=== PATIENT | male | born 1965 | race Caucasian/White ===

== ENCOUNTER 2016-04-29 10:31 | Inpatient (IN) | payer BC ==
[~2016-04-29] VITALS: Ht 172.7 cm; Wt 124.0 kg
[~2016-04-29 10:31] MED LIST: ADULT LOW DOSE81 M1 PO; AMOX TR-K CLV1 EAC4 PO; ANUSOL HC,ANUCO25 MG PR; ASMANEX TW200 MICRO1 IH; ASPIR-LOW81 MG PO; ASPIRIN EC325 MG PO; ASPIRIN81 M2 PO; ATIVAN1 MG PO; ATROVENT 00.5 MG/2.5 IH; AUGMENTIN875 MG PO; AZITHROMYCIN250 MG1 PO; AZITHROMYCIN500 M1 PO; Advair HFA 115/21 IH; CARDIZEM CD,CA180 MG PO; CARDIZEM CD,CA240 MG PO; CARDIZEM CD120 MG PO; CARDIZEM120 MG PO; CARDIZEM60 MG PO; CHEMO DRUGS PO; CHILD ASPIRIN81 M1 PO; CIMETIDINE400 MG PO; CIPRO500 MG PO; COMBIVENT RESPIM4 GM IH; COMPAZINE10 MG PO; DAILY VALUE1 EACH PO; DAILY VITAMIN1 EAC8 PO; DAILY VITE1 EAC1 PO; DELTASONE20 M1 PO; DESYREL100 MG PO; DIGOXIN250 MCG PO; DOXYCYCLINE HY100 MG PO; ENDOCET 5-3251 EACH PO; ENOXAPARIN120 MG/0.8; FENTANYL1 EAC5; FLEXERIL5 MG PO; FLONASE16 G1 BOTH NARES; FLOVENT 22120 INHALA IH; FLOVENT DISKUS1 DIS2 IH; FLUTICASONE PRO16 GM BOTH NARES; FOLIC ACID1 MG; FUROSEMIDE20 MG PO; K-DUR20 MEQ PO; LASIX20 MG PO; LASIX40 MG PO; LEVALBUTER1.25 MG/0. AEROSOL; LEVALBUTER1.25 MG/0. IH; LEVAQUIN500 MG PO; LEVAQUIN750 MG PO; LEVOFLOXACIN500 MG PO; LEVOFLOXACIN750 MG; LORAZEPAM1 MG PO; Lipitor PO; MEN'S MULTI-VI1 EACH PO; METOPROLOL SUCC25 MG PO; METOPROLOL SUCC50 MG PO; METRONIDAZOLE500 MG PO; MOXIFLOXACIN H400 MG PO; OXAYDO5 MG PO; OXECTA5 MG PO; OXYCODONE HCL5 M1; OXYCODONE HCL5 MG PO; PANTOPRAZOLE SO40 MG; PANTOPRAZOLE SO40 MG PO; PEPCID20 MG PO; PERCOCET 5/31 TABLET PO; POTASSIUM PO; PREDNISONE10 M1 PO; PREDNISONE10 MG PO; PREDNISONE20 MG PO; PREDNISONE5 MG PO; PREDNISONE50 MG PO; PROAIR HFA8.5 GM IH; PROMETHAZINE HC25 M1 PO; PROVENTIL,2.5 MG/3 M IH; QVAR 40 MCG IN7.3 GM IH; QVAR 80 MCG IN7.3 GM IH; ROXICODONE5 MG PO; SINGULAIR10 MG PO; SPIRIVA RESPIMAT4 GM IH; SPIRIVA1 INHALATI IH; ST. JOSEPH ASPI81 MG PO; TO WHOM IT MAY CONCE; TRAZODONE HCL100 MG PO; TRAZODONE HCL50 MG PO; TYLENOL EXTRA500 MG PO; TYLENOL PM1 CAPLET PO; TYLENOL REGULA325 MG PO; VENTOLIN HFA18 GM IH; VICODIN ES 7.51 EAC1 PO; VITAMIN D2000 INTUN PO; XARELTO15 MG PO; XARELTO20 MG PO; ZEASORB POWDE70.9 GM TP; ZEASORB-AF70 G1 TP; ZITHROMAX Z-PA250 MG PO; ZOFRAN ODT8 MG PO; ZOFRAN8 MG PO; multivitamin PO
[2016-04-29 12:14] LABS: CHLORIDE 96 mEq/L (99-109); POTASSIUM 3.5 mEq/L (3.7-5.4); SODIUM 136 mEq/L (136-147)
[2016-04-29 12:15] LABS: HEMATOCRIT 33.2 % (38.0-50.0); MCH 29.5 PG (29.0-34.0); MCHC 31.3 G/DL (30.0-36.0); MCV 94.3 FL (86-99); MEAN PLAT.VOLUME 11.8 uM^3 (9.0-12.4); PLATELET COUNT 96 K/uL (156-360); RBC DIS.WIDTH-CV 15.2 % (11.8-14.6); RBC DIS.WIDTH-SD 49.3 % (39-53); RED BLOOD COUNT 3.52 M/uL (4.00-5.50); WHITE BLOOD COUNT 1.1 K/uL (4.1-10.2)
[2016-04-29 12:16] LABS: GLUCOSE 194 mg/dL (70-99)
[2016-04-29 12:20] LABS: GFR ESTIMATE (CALCULATED) > 59 mL/min/
[2016-04-29 12:21] LABS: INTER. NORMALIZED RATIO 1.3; PROTHROMBIN TIME 13.5 (9.2-11.2); PTT 58.3 (25-32); UREA NITROGEN (BUN) 7 mg/dL (9-23)
[2016-04-29 12:24] LABS: ANION GAP 10 MEQ/L (2-14)
[2016-04-29 12:25] LABS: TOTAL BILIRUBIN 0.7 mg/dL (0.0-1.0)
[2016-04-29 12:26] LABS: ALKALINE PHOSPHATASE 86 IU/L (3-129)
[2016-04-29 12:28] LABS: DIRECT BILIRUBIN 0.4 mg/dL (0.0-0.3)
[2016-04-29 13:29] LABS: ADD MIUA? NO; BILIRUBIN NEGATIVE; BLOOD NEGATIVE; COLOR YELLOW ((YELLOW)); GLUCOSE (STRIP) NEGATIVE; KETONES NEGATIVE; LEUKOCYTES NEGATIVE; NITRITE NEGATIVE; PH, URINE 6.5 (5-8); PROTEIN (STRIP) NEGATIVE; SPECIFIC GRAVITY 1.015 (1.000-1.030); UCUL ADDED? NO; UROBILINOGEN 0.2 MG/DL (0.2-1.0)
[2016-04-29 17:50] LABS: LYMPHOCYTE COUNT 0.3 K/uL (1.0-2.8); MONOCYTE (%) 13.5 % (3-12); MONOCYTE COUNT 0.1 K/uL (0-0.8); NEUTROPHIL (%) 58.6 % (45-76); NEUTROPHIL COUNT 0.6 K/uL (1.8-6.4)
[2016-04-29] MEDS ORDERED: DIGOXIN250 MCG PO (18:49)
[2016-04-29] MEDS ORDERED: DESYREL100 MG PO (18:52)
[2016-04-29] MEDS ORDERED: LASIX20 MG PO (18:52)
[2016-04-29 21:58] VITALS: BP 151/85
[2016-04-30] VITALS: BP 106/55
[2016-04-30 00:34] LABS: HEMATOCRIT 31.4 % (38.0-50.0); MCV 94.3 FL (86-99)
[2016-04-30 07:27] VITALS: BP 96/55
[2016-04-30 08:23] LABS: HEMATOCRIT 31.1 % (38.0-50.0); MCV 94.2 FL (86-99)
[2016-04-30 14:55] VITALS: BP 110/61
[2016-04-30 16:07] LABS: HEMATOCRIT 31.6 % (38.0-50.0)
[2016-05-01 00:14] VITALS: BP 127/68
[2016-05-01 07:49] VITALS: BP 96/55
[2016-05-01 09:07] LABS: ANION GAP 8 MEQ/L (2-14); CHLORIDE 99 MEQ/L (99-109); GFR ESTIMATE (CALCULATED) > 59 mL/min/; GLUCOSE 147 mg/dL (70-99); POTASSIUM 3.4 MEQ/L (3.7-5.4); SAMPLE HEMOLYSIS CHECK 0; SAMPLE ICTERIC CHECK 0; SAMPLE LIPEMIA CHECK 0; SODIUM 139 MEQ/L (136-147); UREA NITROGEN (BUN) 6 mg/dL (9-23)
[2016-05-01 09:46] LABS: EOSINOPHIL (%) 0.6 % (0-5); HEMATOCRIT 29.2 % (38.0-50.0); LYMPHOCYTE COUNT 0.4 K/uL (1.0-2.8); MCH 29.9 PG (29.0-34.0); MCHC 31.8 G/DL (30.0-36.0); MCV 93.9 FL (86-99); MONOCYTE (%) 23.3 % (3-12); MONOCYTE COUNT 0.4 K/uL (0-0.8); NEUTROPHIL (%) 50.3 % (45-76); NEUTROPHIL COUNT 0.8 K/uL (1.8-6.4); PLATELET COUNT 116 K/uL (156-360); RBC DIS.WIDTH-CV 15.3 % (11.8-14.6); RBC DIS.WIDTH-SD 52.5 % (39-53); RED BLOOD COUNT 3.11 M/uL (4.00-5.50)
[2016-05-01 09:56] VITALS: BP 121/67
[2016-05-01 10:02] LABS: WHITE BLOOD COUNT 1.6 K/uL (4.1-10.2)
[2016-05-01 11:10] LABS: HEMATOLOGY COMMENT 1 SMEAR COMPATIBLE; PLAT.SUFFICIENCY DECREASED; USER ID TLW
[2016-05-01 15:27] VITALS: BP 130/73
[2016-05-01 23:40] VITALS: BP 132/67
[2016-05-02 07:21] VITALS: BP 144/71
[2016-05-02 07:52] LABS: NRBC (%) 1.2 /100 WBC (0-0)
[2016-05-02 07:59] LABS: EOSINOPHIL (%) 0.2 % (0-5); HEMATOCRIT 31.5 % (38.0-50.0); IMMATURE GRANULOCYTE (%) 0.6 % (0.0-0.7); LYMPHOCYTE COUNT 0.7 K/uL (1.0-2.8); MCH 29.9 PG (29.0-34.0); MCHC 31.7 G/DL (30.0-36.0); MEAN PLAT.VOLUME 11.1 uM^3 (9.0-12.4); MONOCYTE (%) 16.4 % (3-12); MONOCYTE COUNT 0.9 K/uL (0-0.8); NEUTROPHIL (%) 68.9 % (45-76); NEUTROPHIL COUNT 3.7 K/uL (1.8-6.4); PLATELET COUNT 115 K/uL (156-360); RBC DIS.WIDTH-CV 15.6 % (11.8-14.6); RBC DIS.WIDTH-SD 52.6 % (39-53); RED BLOOD COUNT 3.35 M/uL (4.00-5.50)
[2016-05-02 08:02] LABS: WHITE BLOOD COUNT 5.3 K/uL (4.1-10.2)
[2016-05-02] MEDS ORDERED: ANUCORT-HC25 MG PR (15:25)
[2016-05-02 16:00] VITALS: BP 100/68
== END 2016-05-02 19:34 | disposition home or self-care (01) | DRG 394 ==
LOC: EME 10:31 → EDOF 21:06 → 5SOUTH 21:06
PROVIDERS: Hospitalist; Internal Medicine; Nurse Practitioner Family
DX: K64.8 Other hemorrhoids (principal); K62.5 Hemorrhage of anus and rectum; C78.01 Secondary malignant neoplasm of right lung; D70.1 Agranulocytosis secondary to cancer chemotherapy; D64.81 Anemia due to antineoplastic chemotherapy; D69.59 Other secondary thrombocytopenia; D62 Acute posthemorrhagic anemia; E87.6 Hypokalemia; I48.0 Paroxysmal atrial fibrillation; E66.9 Obesity, unspecified; Z68.41 Body mass index [BMI] 40.0-44.9, adult; Z86.718 Personal history of other venous thrombosis and embolism; Z79.01 Long term (current) use of anticoagulants; Z85.118 Personal history of other malignant neoplasm of bronchus and lung
CPT/HCPCS: 74177; 80048; 80076; 81003; 83605; 85014; 85018; 85025; 85027; 85610; 85730; 86850; 86900; 86901; 87040; 93005; 94640; 94640 76; 94799; 99202; 99281; 99285; J0692; J1447; J7030; J7050

== ENCOUNTER 2016-12-31 17:20 | Inpatient (IN) | payer BC ==
[~2016-12-31] VITALS: Ht 172.7 cm; Wt 124.5 kg
[~2016-12-31 17:20] MED LIST changes: +ANUCORT-HC25 MG PR
[2016-12-31 19:42] LABS: EOSINOPHIL (%) 1.7 % (0-5); EOSINOPHIL COUNT 0.1 K/uL (0-0.3); HEMATOCRIT 27.7 % (38.0-50.0); IMMATURE GRANULOCYTE (%) 0.3 % (0.0-0.7); INSTRUMENT ABS NEUTROPHIL CT 2.1 K/uL; LYMPHOCYTE COUNT 0.4 K/uL (1.0-2.8); MCH 30.2 PG (29.0-34.0); MCV 97.2 FL (86-99); MEAN PLAT.VOLUME 11.4 uM^3 (9.0-12.4); MONOCYTE (%) 11.8 % (3-12); MONOCYTE COUNT 0.3 K/uL (0-0.8); NEUTROPHIL (%) 73.3 % (45-76); NEUTROPHIL COUNT 2.1 K/uL (1.8-6.4); PLATELET COUNT 95 K/uL (156-360); RBC DIS.WIDTH-CV 17.8 % (11.8-14.6); RBC DIS.WIDTH-SD 63.6 % (39-53); RED BLOOD COUNT 2.85 M/uL (4.00-5.50); WHITE BLOOD COUNT 2.9 K/uL (4.1-10.2)
[2016-12-31 19:51] LABS: CHLORIDE 94 mEq/L (99-109); POTASSIUM 3.8 mEq/L (3.7-5.4); SODIUM 135 mEq/L (136-147)
[2016-12-31 19:53] LABS: GLUCOSE 118 mg/dL (70-99)
[2016-12-31 19:55] LABS: ANION GAP 10 MEQ/L (2-14); TOTAL BILIRUBIN 0.8 mg/dL (0.0-1.0)
[2016-12-31 19:57] LABS: ALKALINE PHOSPHATASE 147 IU/L (3-129); GFR ESTIMATE (CALCULATED) > 59 mL/min/
[2016-12-31 19:58] LABS: UREA NITROGEN (BUN) 6 mg/dL (9-23)
[2016-12-31 20:03] LABS: TROP-I INTERPRETATION NEGATIVE; TROPONIN-I 0.01 ng/mL (0.0-0.30)
[2016-12-31] MEDS ORDERED: QVAR 80 MCG IN7.3 GM IH (21:51)
[2016-12-31] MEDS ORDERED: MONTELUKAST SOD10 MG PO (21:51)
[2016-12-31] MEDS ORDERED: FLONASE16 G1 BOTH NARES (21:52)
[2016-12-31] MEDS ORDERED: LOPRESSOR25 MG PO (21:52)
[2016-12-31] MEDS ORDERED: FUROSEMIDE20 MG PO (21:52)
[2016-12-31] MEDS ORDERED: MICRO-K10 ME2 PO (21:52)
[2016-12-31] MEDS ORDERED: FUROSEMIDE40 MG PO (21:52)
[2017-01-01 01:45] LABS: INTER. NORMALIZED RATIO 1.2; PROTHROMBIN TIME 12.8 SEC (10.2-12.9)
[2017-01-01 03:05] VITALS: BP 128/59
[2017-01-01 05:54] LABS: HEMATOCRIT 27.1 % (38.0-50.0); MCH 29.6 PG (29.0-34.0); MCHC 30.3 G/DL (30.0-36.0); MCV 97.8 FL (86-99); MEAN PLAT.VOLUME 12.6 uM^3 (9.0-12.4); PLATELET COUNT 99 K/uL (156-360); RBC DIS.WIDTH-SD 64.9 % (39-53); RED BLOOD COUNT 2.77 M/uL (4.00-5.50); WHITE BLOOD COUNT 3.1 K/uL (4.1-10.2)
[2017-01-01 06:15] LABS: ANION GAP 9 MEQ/L (2-14); CHLORIDE 95 MEQ/L (99-109); GFR ESTIMATE (CALCULATED) > 59 mL/min/; GLUCOSE 115 mg/dL (70-99); MAGNESIUM 1.4 mg/dl (1.3-2.7); POTASSIUM 3.6 MEQ/L (3.7-5.4); SAMPLE HEMOLYSIS CHECK 0; SAMPLE ICTERIC CHECK 0; SAMPLE LIPEMIA CHECK 0; SODIUM 136 MEQ/L (136-147); UREA NITROGEN (BUN) 6 mg/dL (9-23)
[2017-01-01 06:42] LABS: ANISOCYTOSIS 2+; EOSINOPHIL (%) 1.6 % (0-5); EOSINOPHIL COUNT 0.1 K/uL (0-0.3); HYPOCHROMASIA 1+; IMMATURE GRANULOCYTE (%) 0.3 % (0.0-0.7); INSTRUMENT ABS NEUTROPHIL CT 2.2 K/uL; LYMPHOCYTE COUNT 0.4 K/uL (1.0-2.8); MACROCYTES 2+; MICROCYTOSIS 1+; MONOCYTE COUNT 0.4 K/uL (0-0.8); NEUTROPHIL (%) 71.8 % (45-76); NEUTROPHIL COUNT 2.2 K/uL (1.8-6.4)
[2017-01-01 07:34] VITALS: BP 114/58
[2017-01-01 12:00] VITALS: BP 117/57
[2017-01-01 16:15] VITALS: BP 107/59
[2017-01-01 20:10] VITALS: BP 115/54
[2017-01-02] VITALS (7 sets, daily range): BP systolic 92–119; BP diastolic 52–72
[2017-01-02 05:15] LABS: HEMATOCRIT 26.3 % (38.0-50.0); MCHC 31.6 G/DL (30.0-36.0); MCV 98.1 FL (86-99); MEAN PLAT.VOLUME 11.8 uM^3 (9.0-12.4); PLATELET COUNT 114 K/uL (156-360); RBC DIS.WIDTH-CV 18.5 % (11.8-14.6); RBC DIS.WIDTH-SD 66.4 % (39-53); RED BLOOD COUNT 2.68 M/uL (4.00-5.50); WHITE BLOOD COUNT 3.2 K/uL (4.1-10.2)
[2017-01-02 05:56] LABS: ANION GAP 7 MEQ/L (2-14); CHLORIDE 94 MEQ/L (99-109); GFR ESTIMATE (CALCULATED) > 59 mL/min/; GLUCOSE 106 mg/dL (70-99); POTASSIUM 3.3 MEQ/L (3.7-5.4); SAMPLE HEMOLYSIS CHECK 0; SAMPLE ICTERIC CHECK 0; SAMPLE LIPEMIA CHECK 0; SODIUM 137 MEQ/L (136-147); UREA NITROGEN (BUN) 6 mg/dL (9-23)
[2017-01-02 05:57] LABS: MAGNESIUM 1.7 mg/dl (1.3-2.7)
[2017-01-03 03:37] VITALS: BP 105/57
[2017-01-03 05:55] LABS: HEMATOCRIT 25.9 % (38.0-50.0); MCH 31.2 PG (29.0-34.0); MCHC 31.7 G/DL (30.0-36.0); MCV 98.5 FL (86-99); PLATELET COUNT 113 K/uL (156-360); RBC DIS.WIDTH-CV 18.5 % (11.8-14.6); RBC DIS.WIDTH-SD 66.6 % (39-53); RED BLOOD COUNT 2.63 M/uL (4.00-5.50); WHITE BLOOD COUNT 2.8 K/uL (4.1-10.2)
[2017-01-03 06:14] LABS: ANION GAP 9 MEQ/L (2-14); CHLORIDE 95 MEQ/L (99-109); GFR ESTIMATE (CALCULATED) > 59 mL/min/; GLUCOSE 88 mg/dL (70-99); MAGNESIUM 1.6 mg/dl (1.3-2.7); POTASSIUM 3.4 MEQ/L (3.7-5.4); SAMPLE HEMOLYSIS CHECK 0; SAMPLE ICTERIC CHECK 0; SAMPLE LIPEMIA CHECK 0; SODIUM 139 MEQ/L (136-147); UREA NITROGEN (BUN) 8 mg/dL (9-23)
[2017-01-03 07:21] VITALS: BP 113/77
[2017-01-03 11:04] VITALS: BP 135/55
[2017-01-03 15:33] VITALS: BP 99/62
[2017-01-03 19:13] VITALS: BP 131/63
[2017-01-03 23:44] VITALS: BP 112/58
[2017-01-04 03:39] VITALS: BP 119/62
[2017-01-04 05:48] LABS: HEMATOCRIT 25.8 % (38.0-50.0); MCHC 31.4 G/DL (30.0-36.0); MCV 98.9 FL (86-99); MEAN PLAT.VOLUME 11.5 uM^3 (9.0-12.4); PLATELET COUNT 112 K/uL (156-360); RBC DIS.WIDTH-CV 18.4 % (11.8-14.6); RBC DIS.WIDTH-SD 66.3 % (39-53); RED BLOOD COUNT 2.61 M/uL (4.00-5.50); WHITE BLOOD COUNT 2.4 K/uL (4.1-10.2)
[2017-01-04 06:07] LABS: ANION GAP 8 MEQ/L (2-14); CHLORIDE 94 MEQ/L (99-109); GFR ESTIMATE (CALCULATED) > 59 mL/min/; GLUCOSE 97 mg/dL (70-99); POTASSIUM 3.5 MEQ/L (3.7-5.4); SAMPLE HEMOLYSIS CHECK 0; SAMPLE ICTERIC CHECK 0; SAMPLE LIPEMIA CHECK 0; SODIUM 138 MEQ/L (136-147); UREA NITROGEN (BUN) 7 mg/dL (9-23)
[2017-01-04 07:58] VITALS: BP 104/58
[2017-01-04 11:21] VITALS: BP 91/54
[2017-01-04 15:37] VITALS: BP 109/66
[2017-01-04 23:50] VITALS: BP 103/54
[2017-01-05 06:41] LABS: HEMATOCRIT 26.3 % (38.0-50.0); MCH 29.7 PG (29.0-34.0); MCV 98.9 FL (86-99); MEAN PLAT.VOLUME 10.2 uM^3 (9.0-12.4); PLATELET COUNT 102 K/uL (156-360); RBC DIS.WIDTH-CV 18.5 % (11.8-14.6); RBC DIS.WIDTH-SD 66.5 % (39-53); RED BLOOD COUNT 2.66 M/uL (4.00-5.50); WHITE BLOOD COUNT 2.3 K/uL (4.1-10.2)
[2017-01-05 07:19] LABS: ANION GAP 7 MEQ/L (2-14); CHLORIDE 94 MEQ/L (99-109); GFR ESTIMATE (CALCULATED) > 59 mL/min/; GLUCOSE 99 mg/dL (70-99); MAGNESIUM 1.5 mg/dl (1.3-2.7); POTASSIUM 3.5 MEQ/L (3.7-5.4); SAMPLE HEMOLYSIS CHECK 0; SAMPLE ICTERIC CHECK 0; SAMPLE LIPEMIA CHECK 0; SODIUM 139 MEQ/L (136-147); UREA NITROGEN (BUN) 7 mg/dL (9-23)
[2017-01-05 08:15] VITALS: BP 115/62
[2017-01-05 15:43] VITALS: BP 113/66
[2017-01-05 23:31] VITALS: BP 111/64
[2017-01-06 06:27] LABS: HEMATOCRIT 26.8 % (38.0-50.0); MCH 29.4 PG (29.0-34.0); MCHC 29.9 G/DL (30.0-36.0); MCV 98.5 FL (86-99); MEAN PLAT.VOLUME 10.3 uM^3 (9.0-12.4); PLATELET COUNT 104 K/uL (156-360); RBC DIS.WIDTH-CV 18.6 % (11.8-14.6); RBC DIS.WIDTH-SD 67.7 % (39-53); RED BLOOD COUNT 2.72 M/uL (4.00-5.50); WHITE BLOOD COUNT 2.7 K/uL (4.1-10.2)
[2017-01-06 07:40] VITALS: BP 114/59
[2017-01-06 07:45] LABS: ANION GAP 8 MEQ/L (2-14); CHLORIDE 94 MEQ/L (99-109); GFR ESTIMATE (CALCULATED) > 59 mL/min/; GLUCOSE 107 mg/dL (70-99); MAGNESIUM 1.7 mg/dl (1.3-2.7); POTASSIUM 3.7 MEQ/L (3.7-5.4); SODIUM 139 MEQ/L (136-147); UREA NITROGEN (BUN) 6 mg/dL (9-23)
[2017-01-06 11:16] VITALS: BP 111/56
[2017-01-06 14:41] VITALS: BP 112/67
[2017-01-06 15:35] LABS: POINT-OF-CARE METER ID UU13113725
[2017-01-06 15:48] VITALS: BP 108/68
[2017-01-06 22:32] VITALS: BP 102/56
[2017-01-07 06:59] LABS: ANION GAP 10 MEQ/L (2-14); CHLORIDE 93 MEQ/L (99-109); GFR ESTIMATE (CALCULATED) > 59 mL/min/; GLUCOSE 114 mg/dL (70-99); POTASSIUM 3.9 MEQ/L (3.7-5.4); SAMPLE HEMOLYSIS CHECK 0; SAMPLE ICTERIC CHECK 0; SAMPLE LIPEMIA CHECK 0; SODIUM 137 MEQ/L (136-147); UREA NITROGEN (BUN) 8 mg/dL (9-23)
[2017-01-07 07:27] VITALS: BP 123/56
[2017-01-07 16:29] VITALS: BP 120/65
[2017-01-07 21:44] VITALS: BP 101/56
[2017-01-08 00:17] VITALS: BP 115/64
[2017-01-08 05:26] VITALS: BP 107/60
[2017-01-08 06:21] LABS: ANION GAP 9 MEQ/L (2-14); CHLORIDE 94 MEQ/L (99-109); GFR ESTIMATE (CALCULATED) > 59 mL/min/; GLUCOSE 122 mg/dL (70-99); MAGNESIUM 1.6 mg/dl (1.3-2.7); POTASSIUM 3.7 MEQ/L (3.7-5.4); SAMPLE HEMOLYSIS CHECK 0; SAMPLE ICTERIC CHECK 0; SAMPLE LIPEMIA CHECK 0; SODIUM 137 MEQ/L (136-147); UREA NITROGEN (BUN) 14 mg/dL (9-23)
[2017-01-08 07:35] VITALS: BP 115/69
[2017-01-08 15:14] VITALS: BP 102/59
== END 2017-01-08 18:41 | disposition short-term general hospital (02) | DRG 189 ==
LOC: EME 17:20 → 4EAST 22:43 → EDOF 22:43 → 5EAST 22:43 → ENRESERV 22:46 → EDOF 01-01 00:23 → ENRESERV 01-01 00:24 → 4EAST 01-01 02:31 → ENRESERV 01-04 10:25 → 5EAST 01-04 18:21
PROVIDERS: Emergency Medicine; Hospitalist; Physician Assistant Medical; Student in an Organized Health Care Education/Training Program
PROC: 0BD38ZX Extraction of Right Main Bronchus, Via Natural or Artificial Opening Endoscopic, Diagnostic (ICD-10-PCS; principal; 2017-01-06)
DX: J96.01 Acute respiratory failure with hypoxia (principal); I11.0 Hypertensive heart disease with heart failure; I50.33 Acute on chronic diastolic (congestive) heart failure; C34.11 Malignant neoplasm of upper lobe, right bronchus or lung; E66.01 Morbid (severe) obesity due to excess calories; Z86.711 Personal history of pulmonary embolism; Z86.718 Personal history of other venous thrombosis and embolism; I48.0 Paroxysmal atrial fibrillation; Z79.01 Long term (current) use of anticoagulants; I95.9 Hypotension, unspecified; Z99.81 Dependence on supplemental oxygen; K21.9 Gastro-esophageal reflux disease without esophagitis; Z87.891 Personal history of nicotine dependence; Z68.41 Body mass index [BMI] 40.0-44.9, adult; Z91.11 Patient's noncompliance with dietary regimen; D61.810 Antineoplastic chemotherapy induced pancytopenia; T45.1X5A Adverse effect of antineoplastic and immunosuppressive drugs, initial encounter; I27.29 Other secondary pulmonary hypertension; I48.92 Unspecified atrial flutter; I87.2 Venous insufficiency (chronic) (peripheral); J98.11 Atelectasis; E87.6 Hypokalemia; J44.1 Chronic obstructive pulmonary disease with (acute) exacerbation; I26.99 Other pulmonary embolism without acute cor pulmonale; J18.9 Pneumonia, unspecified organism; J44.0 Chronic obstructive pulmonary disease with (acute) lower respiratory infection
CPT/HCPCS: 71010; 71250; 76604; 76775; 80048; 80053; 80069; 82948; 83605; 83615 91; 83735; 83880; 84157; 84484; 85025; 85027; 85610; 85651; 87040; 87070; 87205; 88108; 89051; 93005; 93306; 94640; 94640 76; 94667; 94668; 94799; 99202; 99281; 99285; J0692; J0696; J1644; J1940; J2250; J3475; J7050; J7512

== ENCOUNTER 2017-11-06 21:42 | Inpatient (IN) | payer OTHER ==
[~2017-11-06] VITALS: Ht 172.7 cm; Wt 102.0 kg
[~2017-11-06 21:42] MED LIST changes: +FUROSEMIDE40 MG PO; +MICRO-K10 ME2 PO; +MONTELUKAST SOD10 MG PO; +TOPROL XL25 MG PO
[2017-11-06 22:22] LABS: BASOPHIL (%) 0 % (0-1); EOSINOPHIL (%) 2.7 % (0-5); EOSINOPHIL COUNT 0.1 K/uL (0-0.3); HEMATOCRIT 26.8 % (38.0-50.0); HEMOGLOBIN 8.5 G/DL (12.5-16.6); IMMATURE GRANULOCYTE (%) 0.3 % (0.0-0.7); LYMPHOCYTE (%) 14.8 % (15-42); LYMPHOCYTE COUNT 0.5 K/uL (1.0-2.8); MCHC 31.7 G/DL (30.0-36.0); MCV 97.8 FL (86-99); MONOCYTE (%) 10.3 % (3-12); MONOCYTE COUNT 0.3 K/uL (0-0.8); NEUTROPHIL (%) 71.9 % (45-76); NEUTROPHIL COUNT 2.4 K/uL (1.8-6.4); PLATELET COUNT 80 K/uL (156-360); RBC DIS.WIDTH-CV 15.6 % (11.8-14.6); RBC DIS.WIDTH-SD 55.6 % (39-53); RED BLOOD COUNT 2.74 M/uL (4.00-5.50); WHITE BLOOD COUNT 3.3 K/uL (4.1-10.2)
[2017-11-06 22:27] LABS: INTER. NORMALIZED RATIO 1.3
[2017-11-06 22:30] LABS: PTT 34.8 SEC (25-37)
[2017-11-06 22:44] LABS: TROP-I INTERPRETATION NEGATIVE; TROPONIN-I < 0.01 ng/mL (0.0-0.30)
[2017-11-06 22:56] LABS: ALBUMIN 3.1 G/DL (3.2-4.8); ALKALINE PHOSPHATASE 134 IU/L (3-129); ALT (GPT) 6 IU/L (3-49); AST (GOT) 19 IU/L (2-34); CHLORIDE 100 MEQ/L (99-109); CREATININE 1.1 MG/DL (0.6-1.3); DIRECT BILIRUBIN 0.3 mg/dL (0.0-0.3); GFR ESTIMATE (CALCULATED) > 59 mL/min/ (58.99-99999); GLUCOSE 118 mg/dL (70-99); POTASSIUM 4.3 MEQ/L (3.7-5.4); SODIUM 139 MEQ/L (136-147); TOTAL BILIRUBIN 0.9 MG/DL (0.0-1.0); TOTAL PROTEIN 6.4 G/DL (6.4-8.3); UREA NITROGEN (BUN) 15 mg/dL (9-23)
[2017-11-07] MEDS ORDERED: DILTIAZEM 24HR120 MG PO (00:21)
[2017-11-07] MEDS ORDERED: ALBUTEROL2.5 MG/3 M IH (00:21)
[2017-11-07] MEDS ORDERED: LISINOPRIL2.5 MG PO (00:22)
[2017-11-07] MEDS ORDERED: LEVAQUIN500 MG PO (00:22)
[2017-11-07 04:44] VITALS: BP 90/66
[2017-11-07 07:50] VITALS: BP 93/52
[2017-11-07 08:47] LABS: HEMATOCRIT 25.6 % (38.0-50.0); HEMOGLOBIN 7.8 G/DL (12.5-16.6); MCV 99.6 FL (86-99)
[2017-11-07 11:41] VITALS: BP 155/70
[2017-11-07 15:54] LABS: HEMATOCRIT 25.7 % (38.0-50.0); HEMOGLOBIN 8.1 G/DL (12.5-16.6); MCV 99.6 FL (86-99)
[2017-11-07 17:00] VITALS: BP 95/54
[2017-11-07 19:45] VITALS: BP 90/50
[2017-11-07 23:25] VITALS: BP 95/51
[2017-11-08 00:26] LABS: HEMATOCRIT 25.2 % (38.0-50.0); HEMOGLOBIN 8.2 G/DL (12.5-16.6); MCV 97.3 FL (86-99)
[2017-11-08 03:40] VITALS: BP 95/50
[2017-11-08 06:22] LABS: CHLORIDE 100 MEQ/L (99-109); GFR ESTIMATE (CALCULATED) > 59 mL/min/ (58.99-99999); POTASSIUM 4.2 MEQ/L (3.7-5.4); SODIUM 140 MEQ/L (136-147); UREA NITROGEN (BUN) 13 mg/dL (9-23)
[2017-11-08 06:26] LABS: GLUCOSE 81 mg/dL (70-99)
[2017-11-08 07:51] VITALS: BP 91/50
[2017-11-08 09:47] LABS: APPEARANCE CLEAR ((CLEAR)); BILIRUBIN NEGATIVE; BLOOD NEGATIVE; COLOR YELLOW ((YELLOW)); GLUCOSE (STRIP) NEGATIVE; KETONES NEGATIVE; LEUKOCYTES NEGATIVE; NITRITE NEGATIVE; PROTEIN (STRIP) NEGATIVE; SPECIFIC GRAVITY 1.008 (1.000-1.030); UCUL ADDED? NO; UROBILINOGEN 0.2 MG/DL (0.2-1.0)
[2017-11-08 11:35] VITALS: BP 93/56
[2017-11-08 16:46] VITALS: BP 90/55
[2017-11-08 19:45] VITALS: BP 90/54
[2017-11-09] VITALS (8 sets, daily range): BP systolic 96–116; BP diastolic 50–65
[2017-11-09 05:41] LABS: BASOPHIL (%) 0.4 % (0-1); EOSINOPHIL (%) 3.1 % (0-5); EOSINOPHIL COUNT 0.1 K/uL (0-0.3); HEMATOCRIT 26.1 % (38.0-50.0); HEMOGLOBIN 8.1 G/DL (12.5-16.6); LYMPHOCYTE (%) 19.7 % (15-42); LYMPHOCYTE COUNT 0.5 K/uL (1.0-2.8); MCH 30.5 PG (29.0-34.0); MCV 98.1 FL (86-99); MONOCYTE (%) 20.1 % (3-12); MONOCYTE COUNT 0.5 K/uL (0-0.8); NEUTROPHIL (%) 56.7 % (45-76); NEUTROPHIL COUNT 1.4 K/uL (1.8-6.4); PLATELET COUNT 83 K/uL (156-360); RBC DIS.WIDTH-CV 15.3 % (11.8-14.6); RBC DIS.WIDTH-SD 55.6 % (39-53); RED BLOOD COUNT 2.66 M/uL (4.00-5.50); WHITE BLOOD COUNT 2.5 K/uL (4.1-10.2)
[2017-11-09 05:57] LABS: CHLORIDE 97 MEQ/L (99-109); CREATININE 1.1 MG/DL (0.6-1.3); GFR ESTIMATE (CALCULATED) > 59 mL/min/ (58.99-99999); GLUCOSE 92 mg/dL (70-99); POTASSIUM 4.2 MEQ/L (3.7-5.4); SODIUM 139 MEQ/L (136-147); UREA NITROGEN (BUN) 15 mg/dL (9-23)
[2017-11-10 03:41] VITALS: BP 102/59
[2017-11-10 06:06] LABS: HEMATOCRIT 24.8 % (38.0-50.0); HEMOGLOBIN 7.7 G/DL (12.5-16.6); MCH 30.3 PG (29.0-34.0); MCV 97.6 FL (86-99); PLATELET COUNT 71 K/uL (156-360); RBC DIS.WIDTH-CV 15.1 % (11.8-14.6); RBC DIS.WIDTH-SD 54.4 % (39-53); RED BLOOD COUNT 2.54 M/uL (4.00-5.50)
[2017-11-10 06:14] LABS: CHLORIDE 95 MEQ/L (99-109); CREATININE 1.1 MG/DL (0.6-1.3); GFR ESTIMATE (CALCULATED) > 59 mL/min/ (58.99-99999); GLUCOSE 89 mg/dL (70-99); POTASSIUM 4.1 MEQ/L (3.7-5.4); SODIUM 138 MEQ/L (136-147); UREA NITROGEN (BUN) 14 mg/dL (9-23)
[2017-11-10 06:50] LABS: WHITE BLOOD COUNT 1.7 K/uL (4.1-10.2)
[2017-11-10 07:15] LABS: ANISOCYTOSIS 1+; BAND NEUTROPHILS 0.9 % (0-8.0); EOSINOPHIL ABS CT 0.1; EOSINOPHILS 3.5 % (0-5.0); GIANT PLATELETS 1+; HYPOCHROMASIA 3+; LYMPHOCYTES 20.9 % (15.0-45.0); MACROCYTES 1+; MONOCYTES 15.6 % (0-9.0); PLAT.SUFFICIENCY DECREASED; POIKILOCYTOSIS 1+; SEG.NEUTROPHILS 59.1 % (46.0-76.0)
[2017-11-10 09:08] VITALS: BP 110/58
[2017-11-10 12:30] VITALS: BP 100/57
[2017-11-10 17:00] VITALS: BP 107/61
[2017-11-10 19:14] VITALS: BP 110/61
[2017-11-10 19:41] LABS: HEMATOCRIT 25.9 % (38.0-50.0); HEMOGLOBIN 8.2 G/DL (12.5-16.6)
[2017-11-10 23:30] VITALS: BP 96/52
[2017-11-11] VITALS (7 sets, daily range): BP systolic 93–101; BP diastolic 51–60
[2017-11-11 05:39] LABS: BASOPHIL (%) 0.5 % (0-1); EOSINOPHIL (%) 1.6 % (0-5); HEMATOCRIT 24.7 % (38.0-50.0); HEMOGLOBIN 7.8 G/DL (12.5-16.6); LYMPHOCYTE (%) 20.8 % (15-42); LYMPHOCYTE COUNT 0.4 K/uL (1.0-2.8); MCH 30.6 PG (29.0-34.0); MCHC 31.6 G/DL (30.0-36.0); MCV 96.9 FL (86-99); MONOCYTE (%) 25.1 % (3-12); MONOCYTE COUNT 0.5 K/uL (0-0.8); PLATELET COUNT 75 K/uL (156-360); RBC DIS.WIDTH-CV 15.3 % (11.8-14.6); RBC DIS.WIDTH-SD 53.9 % (39-53); RED BLOOD COUNT 2.55 M/uL (4.00-5.50)
[2017-11-11 05:44] LABS: WHITE BLOOD COUNT 1.8 K/uL (4.1-10.2)
[2017-11-11 06:01] LABS: CHLORIDE 95 MEQ/L (99-109); CREATININE 0.9 MG/DL (0.6-1.3); GFR ESTIMATE (CALCULATED) > 59 mL/min/ (58.99-99999); GLUCOSE 87 mg/dL (70-99); POTASSIUM 3.8 MEQ/L (3.7-5.4); SODIUM 136 MEQ/L (136-147); UREA NITROGEN (BUN) 12 mg/dL (9-23)
[2017-11-11 08:49] LABS: IRON 58 MCG/DL (35-150); TRANSFERRIN SATUR. 32 % (20-55)
[2017-11-11 09:24] LABS: FOLIC ACID (FOLATE) > 22.0 NG/ML (5.0-22.0)
[2017-11-11 09:29] LABS: FERRITIN 304 NG/ML (22-322)
[2017-11-11] MEDS ORDERED: DILTIAZEM ER60 MG PO (16:21)
== END 2017-11-11 18:39 | disposition home or self-care (01) | DRG 377 ==
LOC: EME → EDBD 21:42 → EME 21:42 → 4EAST 11-07 03:03 → EDOF 11-07 03:03 → ENRESERV 11-07 03:07 → 4EAST 11-07 04:30 → ENPENDDIS 11-11 → 4EAST 11-11 18:39
PROVIDERS: Emergency Medicine; Hospitalist; Internal Medicine; Internal Medicine Hematology & Oncology; Student in an Organized Health Care Education/Training Program
PROC: 30233N1 Transfusion of Nonautologous Red Blood Cells into Peripheral Vein, Percutaneous Approach (ICD-10-PCS; principal; 2017-11-11)
DX: K92.2 Gastrointestinal hemorrhage, unspecified (principal); D61.810 Antineoplastic chemotherapy induced pancytopenia; I48.0 Paroxysmal atrial fibrillation; J96.11 Chronic respiratory failure with hypoxia; Z99.81 Dependence on supplemental oxygen; Z86.711 Personal history of pulmonary embolism; Z86.718 Personal history of other venous thrombosis and embolism; K21.9 Gastro-esophageal reflux disease without esophagitis; Z87.891 Personal history of nicotine dependence; T45.1X5A Adverse effect of antineoplastic and immunosuppressive drugs, initial encounter; I25.10 Atherosclerotic heart disease of native coronary artery without angina pectoris; J44.9 Chronic obstructive pulmonary disease, unspecified; I10 Essential (primary) hypertension; I95.9 Hypotension, unspecified; E86.0 Dehydration; E66.01 Morbid (severe) obesity due to excess calories; Z68.35 Body mass index [BMI] 35.0-35.9, adult; C34.11 Malignant neoplasm of upper lobe, right bronchus or lung; I27.81 Cor pulmonale (chronic); I87.2 Venous insufficiency (chronic) (peripheral); K59.00 Constipation, unspecified
CPT/HCPCS: 71045; 80048; 80076; 81003; 82607; 82728; 82746; 83540; 83880; 84466; 84484; 85014; 85018; 85025; 85379; 85610; 85730; 86850; 86900; 86901; 86920; 94640; 94760; 94799; 99281; 99285; C9113; J1447; J7030; P9016